=== PATIENT | female | born 1965 | race Caucasian/White ===

== ENCOUNTER 2017-01-10 13:08 | Outpatient (CLI) | payer OTHER | END 2017-01-10 13:24 | LOC: D.MAMMO 13:08 | DX: Z12.31 Encounter for screening mammogram for malignant neoplasm of breast (principal) ==

== ENCOUNTER → 2018-06-07 19:33 | Outpatient (CLI) | payer BC | END | disposition home or self-care (01) | LOC: D.MAMMO 15:45 | DX: Z12.31 Encounter for screening mammogram for malignant neoplasm of breast (principal) ==

== ENCOUNTER 2018-09-15 15:24 | Observation (INO) | payer BC ==
[~2018-09-15] VITALS: Ht 172.7 cm; Wt 0.5 kg
--- NOTE | ~2018-09-15 | DS ---
PATIENT:KARTHIK JC :69 MEDICAL RECORD: [id number] DISCHARGE SUMMARY ADMISSION DATE: 09/15/18 DISCHARGE DATE: 09/16/18 DATE OF DISCHARGE: 09/16/2018 DIAGNOSES: 1. Chest pain. 2. Normal cardiac catheterization. Ms. Jc presents with chest pain; however, cardiac catheterization reveals no significant coronary artery disease, was discharged home with no change in her medical regimen and no cardiac followup. TRANSINT:[id number] Voice Confirmation ID: [id number] DOCUMENT ID: [id number] DILEEP GUTIÉRREZ MD CC: [id number] DICTATION DATE: 09/16/18 1201 WORLD LANGUAGE TEACHER: 09/16/18 2206 DIS IN 09/16/18 [id number] [place] [address]
--- NOTE | ~2018-09-15 | OP ---
PATIENT NAME: KARTHIK JIÉMNEZ MEDICAL RECORD: [id number] :69 LOCATION:D.M2 D.2123 ADMISSION DATE:09/15/18 SURGEON: DILEEP GUTIÉRREZ MD DATE OF OPERATION: 09/16/2018 PROCEDURES: 1. Left heart catheterization. 2. Selective coronary angiography. 3. Left ventriculogram. INDICATION: Chest pain of unknown etiology. PROCEDURE IN DETAIL: After informed consent was obtained with detailed explanation of risks and benefits as well as alternative therapies, the patient elected to proceed with angiogram and heart catheterization. The right radial area was prepped and draped in normal sterile fashion. The right radial artery was cannulated via modified Seldinger technique with placement of 5-Danish sheath. All catheters were exchanged through this sheath. FINDINGS: Left ventriculogram performed in standard 30-degree LAO view reveals good cardiac wall motion throughout all segments. Overall ejection fraction is estimated at 60%. SELECTIVE CORONARY ANGIOGRAPHY: Left main, left anterior descending, left circumflex, and right coronary are all smooth-walled vessels with no angiographic evidence of coronary artery disease. OVERALL IMPRESSION: 1. No angiographic evidence of coronary artery disease. 2. Normal left heart pressures. 3. Normal left ventricular systolic function. TRANSINT:[id number] Voice Confirmation ID: [id number] DOCUMENT ID: [id number] DILEEP GUTIÉRREZ MD CC: [id number] DICTATION DATE: 09/16/18 1203 HYDRAULIC GOVERNOR ASSEMBLER: 09/16/[address] [facility] [address] [id number]
--- NOTE | ~2018-09-15 | HEMODYNAMI ---
PATIENT:KARTHIK JIMÉNEZ MEDICAL RECORD: [id number] : 69 [id number] ADMISSION DATE: 09/15/18 Generatedon:09/16/201812:04 Patient name: KARTHIK JIMÉNEZ Patient #: [id number] SSN: : Date of study: 09/16/2018 Page: Of Hemodynamic Procedure Report Patient Data Patient Demographics Procedure consent was obtained First Name: KARTHIK Gender: Female Last Name: TINO : 1965 Patient #: [id number] Age: 53 year(s) Race: Unknown Additional ID: [id number] Contact details Address: [address] [place] [address] ROAD State: [place] City: [place] Zip code: [address] Past Medical History Allergies: No known allergies Admission Admission Data Admission Date: 09/15/2018 Admission Time: 17:14 Room #: 2123 Lab Results Lab Result Date: 09/16/2018 Lab Result Time: 4:20 Biochemistry Name Units Result Min Max BUN mg/dl 14 --(--*-)-- 7 18 Creatinine mg/dl 0.8 --(-*--)-- 0.6 1.3 CBC Name Units Result Min Max Hematocrit % 39.5 -*(----)-- 42 54 Hemoglobin g/dl 13.8 --(*---)-- 13.5 17.5 Procedure Procedure Types Cath Procedure Diagnostic Procedure C [facility] w/Coronaries Procedure Description Procedure Date Procedure Date: 09/16/2018 Procedure Start Time: 11:52 Procedure End Time: 12:00 Procedure Staff Name Function Zhou Villatoro RT Scrub Chepe Preston RN Nurse Barrera Francis MD Performing Physician Dallas Ye RT Monitor Procedure Data Cath Procedure Fluoroscopy Diagnostic fluoroscopy Total fluoroscopy Time: 1.4 time: 1.4 min min Diagnostic fluoroscopy Total fluoroscopy dose: 252 dose: 252 mGy mGy Contrast Material Contrast Material Type Amount (ml) Isovue 300 44 Entry Location Entry Primary Successful Side Size Upsize Upsize Entry Closure Reinoso ccessful Closure Location (Fr) 1 (Fr) 2 (Fr) Remarks Device Remarks Radial Right 6 Fr Mechanical artery Short Compression Estimated blood loss: 5 ml Diagnostic catheters Device Type Used For End Catheter Placement DIAGNOSTIC [place] 110cm 5 Procedure Fr catheter ([id number]) Procedure Complications No complications Procedure Medications Medication Administration Route Dosage Oxygen etCO2 Nasal cannula 2 l/min Lidocaine 2% added to field 20 Heparin Flush Bag added to field 2 bags (1000units/500ml NS) 0.9% NaCl I.V. 100 ml/hr Radial Cocktail I.A. 1 syringe (Verapomil 2mg/Nitro 400mcg/Heparin 1500units) Versed I.V. 1 mg Fentanyl I.V. 50 mcg Versed I.V. 1 mg Fentanyl I.V. 50 mcg Hemodynamics Rest HGB: 13.8 (g/dl) Heart Rate: 66 (bpm) Pressure Samples Time Site Value (mmHg) Purpose Heart Use Rate(bpm) 11:56 LV 59/8,23 Snapshot 72 11:56 LV 100/14,8 Pullback 74 11:56 AO 105/81(92) Pullback 74 Gradients Valve Time Site 1 Site 2 Mean SEP/DFP Peak To Heart Use (mmHg) (sec/min) Peak Rate (mmHg) (bpm) Aortic 11:56 LV AO 0 74 100/14,8 105/81(92) Calculations Valve P-P Mean Valve Index Valve Source Name Gradient Area Flow (cm2) Aortic 0 0 Snapshots Pre Cath Intra NCS Post Cath Vital Signs Time Heart Resp SPO2 etCO2 NIBP (mmHg) Rhythm Pain Sedation Rate (ipm) (%) (mmHg) Status Level (bpm) 11:33:13 56 16 99 40.9 155/86(129) NSR 0 (11) 10(A) , No pain 11:37:39 63 10 100 35.7 123/49(94) NSR 0 (11) 10(A) , No pain 11:42:34 69 12 100 0 146/92(135) NSR 0 (11) 10(A) , No pain 11:46:54 58 12 99 45.5 124/55(82) NSR 0 (11) 10(A) , No pain 11:52:01 57 11 100 44.7 144/62(133) NSR 0 (11) 10(A) , No pain 11:56:09 73 13 100 46.9 107/75(101) NSR 0 (11) 9(A) , No pain 12:00:11 76 14 99 38 103/87(99) NSR 0 (11) 10(A) , No pain Medications Time Medication Route Dose Verified Delivered Reason Notes Effectiveness by by 11:31:34 Oxygen etCO2 2 l/min Barreracathy Mo used for Nasal Penny Preston RN procedure cannula 11:31:40 Lidocaine 2% added 20ml Barreracathy Rust for local to vial Penyn Francis MD anesthetic field 11:31:46 Heparin Flush added 2 bags Barrera Rust used for Bag to Penny Francis MD procedure (1000units/500ml field NS) 11:31:56 0.9% NaCl I.V. 100 Barreracathy Mo Per ml/hr Penny Preston RN physician 11:52:31 Versed I.V. 1 mg Barrera Mo for sedation Penny Preston RN 11:52:38 Fentanyl I.V. 50 mcg Barrera Mo for sedation Penny Preston RN 11:55:24 Radial Cocktail I.A. 1 Barrera Rust for (Verapomil syringe Penny Francis MD vasodilation 2mg/Nitro 400mcg/Hepari 11:56:18 Versed I.V. 1 mg Barrera Mo for sedation Penny Preston RN 11:56:22 Fentanyl I.V. 50 mcg Barrera Mo for sedation Penny Preston RN Procedure Log Time Note 10:56:35 Zhou Villatoro RT(R) sent for patient. Start room use. 10:56:38 Time tracking: Call back (After hours or weekends) 10:56:43 Plan of Care:Hemodynamics will remain stable., Cardiac rhythm will remain stable., Comfort level will be maintained., Respiratory function will remain adequate., Patient/ family verbilizes understanding of procedure., Procedure tolerated without complication., Recovers from procedure without complications.. 11:19:20 Warm blankets applied, and barbara hugger turned on for patient comfort. 11:19:20 Patient received from Med II to CCL 1 Alert and oriented. Tansferred to table in Supine position. 11:19:21 Correct patient and procedure confirmed by team. 11:19:22 Signed procedure consent form obtained from patient. 11:19:23 ECG and BP/O2 sat monitors applied to patient. 11:19:24 Pre-op teaching completed and patient verbalized understanding. 11:19:24 Pre-procedure instructions explained to patient. 11:19:25 Family in waiting room. 11:19:26 Patient NPO since Midnight. 11:31:34 Oxygen 2 l/min etCO2 Nasal cannula was administered by Chepe Preston RN; used for procedure; 11:31:40 Lidocaine 2% 20ml vial added to field was administered by Barrera Francis MD; for local anesthetic; 11:31:46 Heparin Flush Bag (1000units/500ml NS) 2 bags added to field was administered by Barrera Francis MD; used for procedure; 11:31:56 0.9% NaCl 100 ml/hr I.V. was administered by Chepe Preston RN; Per physician; 11:31:59 Vital chart was started 11:37:06 If diabetic: On Metformin? No 11:37:15 Baseline sample Acquired. 11:37:18 Rhythm: sinus rhythm 11:37:20 Full Disclosure recording started 11:37:36 H&P Date Dictated: 09/15/2018 Within 30 days and on chart.. 11:37:44 Patient allergic to No known allergies 11:37:45 Is the patient allergic to Iodine/contrast media? No. 11:37:46 Is patient on blood thinner?Yes 11:37:48 ACC The patient was administered the following blood thiners within the last 24 hours: ACCPlavix 11:37:49 Patient diabetic? Yes. 11:37:52 Previous problem with sedation/anesthesia? No ? 11:37:54 Snore? Yes 11:37:55 Sleep apnea? No 11:37:56 Opens mouth fully? Yes 11:37:56 Deviated septum? No 11:38:01 Sticks out tongue? Yes 11:38:03 Airway obstruction? No ? 11:38:06 Dentures? No ? 11:38:10 Pre procedure: right dorsailis pedis pulse 2+ Normal; easily identifiable; not easily obliterated 11:38:12 Patient pain scale 0/10 ?. 11:38:15 Modified Zhou's test Ulnar < 7 seconds 11:38:19 IV patent on arrival in left hand with 0.9% NaCl at KVO. 11:39:13 Lab Result : Hemoglobin 13.8 g/dl 11:39:13 Lab Result : Hematocrit 39.5 % 11:39:13 Lab Result : BUN 14 mg/dl 11:39:13 Lab Result : Creatinine 0.8 mg/dl 11:39:16 Lab results completed and on chart. 11:39:18 Right Radial & Right Groin area was prepped with chlora-prep and draped in sterile fashion 11:39:19 Sharps counted by scrub and verified by R.N. 11:39:19 Alarms reviewed by R. N. 11:39:22 ACIST Syringe (51552) opened to sterile field. 11:39:22 Use device set Radial Dx or PCI 11:39:23 Bag Decanter (2002S) opened to sterile field. 11:39:23 Medline Cath Pack ([id number]) opened to sterile field. 11:39:24 ACIST Manifold (96792) opened to sterile field. 11:39:24 ACIST Hand Control (69883) opened to sterile field. 11:39:25 MBrace Wrist Support ([id number]) opened to sterile field. 11:39:25 Tegaderm 4 x 4 (1626W) opened to sterile field. 11:39:26 SHEATH 6FR Slender (58-1060) opened to sterile field. 11:39:27 DIAGNOSTIC WIRE .035 260cm J wire (014599) opened to sterile field. 11:51:51 --------ALL STOP TIME OUT------ 11:51:51 Physician arrived 11:51:52 Final Timeout: patient, procedure, and site verified with staff and physician. All members of the team are in agreement. 11:51:53 Right Radial & Right Groin site verified by team. 11:51:56 Maximum allowable Isovue 300 dose 300ml. Physician notified. (300ml for normal creatinines. For patients with creatinine of 1.7 or higher multiply weight(kg) x 5 divided by creatinine.) 11:51:59 Fire Safety Assessment: A--An alcohol-based skin anteseptic being used preoperatively., C--Open oxygen or nitrous oxide is being used., D--An ESU, laser, or fiber-optic light is being used. 11:52:02 Physical assessment completed. ASA score P 2 - A patient with mild systemic disease as per Barrera Francis MD. 11:52:05 Sedation plan: IV Moderate Sedation Medication:Versed, Fentanyl 11:52:31 Versed 1 mg I.V. was administered by Chepe Preston RN; for sedation; 11:52:32 Procedure started. 11:52:38 Fentanyl 50 mcg I.V. was administered by Chepe Preston RN; for sedation; 11::49 Local anesthetic to right radial artery with Lidocaine 2% by Barrera Francis MD.INITIAL ACCESS ONLY 11:52:56 A 6 Fr Short sheath was inserted into the Right Radial artery 11:54:34 Zero performed for pressure channel P1 11:55:24 Radial Cocktail (Verapomil 2mg/Nitro 400mcg/Heparin 1500units) 1 syringe I.A. was administered by Barrera Francis MD; for vasodilation; 11:55:40 A DIAGNOSTIC [place] 110cm 5 Fr catheter ([id number]) was advanced over the wire and used for Procedure. 11:56:12 LV gram done using LAO 11:56:15 Injector settings: Ml/sec: 5, Volume: 15, 11:56:16 LV hemodynamics recorded. 11:56:18 Versed 1 mg I.V. was administered by Chepe Preston RN; for sedation; 11:56:22 Fentanyl 50 mcg I.V. was administered by Chepe Preston RN; for sedation; 11:56:37 EF : 60 % 11:56:59 RCA angiography performed. 11:57:09 Catheter exchanged over wire. 11:57:48 GUIDE 6FR XBC 3 ([id number]) opened to sterile field. 11:57:54 Catheter exchanged over wire. 11:57:59 6 Fr XBC 3 guide catheter was inserted over the wire 11:58:05 LCA angiography performed. 11:59:43 Catheter removed. 11:59:45 TR BAND Standard ([id number]) opened to sterile field. 11:59:52 Sheath removed intact; hemostasis achieved with Mechanical Compression to the Right Radial artery. 11:59:56 Procedure ended.(Physican Out) 12:00:07 Fluoroscopy time 01.40 minutes. 12:00:11 Fluoroscopy dose: 252 mGy 12:00:11 Flurop Dose total: 252 12:00:14 Contrast amount:Isovue 300 44ml. 12:00:15 Sharps counted by scrub and verified by R.N. 12:00:17 TR band inflated with 12cc of air. 12:00:19 Insertion/operative site no bleeding no hematoma. 12:00:24 Post right radial artery:stable, soft, clean and dry 12:00:26 Post Procedure Pulses reassessed and unchanged 12:00:31 Post-procedure physical assessment completed. ASA score P 2 - A patient with mild systemic disease as per Barrera Francis MD. 12:00:33 Post procedure rhythm: unchanged. 12:00:35 Estimated blood loss: 5 ml 12:00:36 Patient needs reinforcement of post procedure teaching. 12:00:36 Post procedure instruction explained to patient.Patient verbalizes understanding. 12:00:42 Procedure and supply charges have been captured, reviewed, submitted and are correct. 12:00:45 Procedure Complication : No complications 12:00:46 Vital chart was stopped 12:00:47 See physician's report for complete and final results. 12:00:49 Report given to PCU. 12:00:51 Patient transfered to PCU with Stretcher. 12:00:53 Full Disclosure recording stopped 12:00:53 Procedure ended. 12:00:56 End room use (Document Last) Device Usage Item Name Manufacture Quantity Catalog Hospital Part Current Minimal Lot# / Number Charge Number Stock Stock Serial# Code ACIST Acist 1 52448 [id number] 467988 125417 20 Syringe Medical (39541) Systems Inc Medline Medline 1 [id number] 211103 07853 876058 5 Cath Pack ([id number]) Bag Microtek 1 308895 08708 892437 5 Decanter Medical Inc. () ACIST Hand Acist 1 88086 759737 432936 836652 5 Control Medical (98770) Systems Inc ACIST Acist 1 36064 754306 942494 692063 5 Manifold Medical (98993) Systems Inc Tegaderm 4 3M 1 1626W 010793 970048 133004 5 x 4 (1626W) MBrace Advanced 1 140-0250-00 678072 11437 605006 5 Wrist Vascular Support Dynamics ([id number]) SHEATH 6FR Terumo 1 [id number] 647682 575240 468289 5 Slender (80-1060) DIAGNOSTIC [facility] [place] 1 986163 550805 286910 672966 30 WIRE .035 260cm J wire (244377) DIAGNOSTIC Terumo 1 40-7492 757141 794315 865010 5 [place] 110cm 5 Fr catheter (196809) GUIDE 6FR Cardinal 1 [id number] 693956 17850 265490 5 XBC 3 [facility] ([id number]) TR BAND Terumo 1 [id number] 621286 887825 454995 40 Standard ([id number]) Signature Audit Leon Stage Time Signature Unsigned Intra-Procedure 09/16/2018 Dallas Ye RT(R) 12:01:24 PM RT(R) 09/16/2018 12:04:20 PM Intra-Procedure 09/16/2018 Dallas Ye 12:04:51 PM RT(R) Signatures Monitor : Dallas Ye RT Signature : Date : Time : [facility] [address] [place] [address]
[2018-09-15] MEDS ORDERED: LIPITOR40 MG PO (15:32)
[2018-09-15] MEDS ORDERED: SYNTHROID50 MCG PO (15:32)
[2018-09-15] MEDS ORDERED: BUPROPION HCL150 M1 PO (15:32)
[2018-09-15 16:30] LABS: EOSINOPHILS 8.2 % (0-7); HEMATOCRIT 39.5 % (36.0-48.0); HEMOGLOBIN 13.8 g/dL (12-16); IMMATURE GRANULOCYTES 0.1 % (0-5); LYMPHOCYTES 45.3 % (15-50); MCH 31.4 pg (26.0-34.0); MCHC 34.9 g/dL (31.0-37.0); MEAN PLATELET VOLUME 10.3 fL (7.4-10.4); MONOCYTES 12.8 % (2-11); NEUTROPHILS 32.6 % (40-80); PLATELET COUNT 231 10x3/uL (130-400); RBC 4.39 10x6/uL (4.00-5.40); RDW 12.5 % (11.5-14.5)
[2018-09-15 16:39] LABS: APTT 25.2 SECONDS (22.8-39.4); INR 0.99 (0.85-1.17); PROTIME 12.6 SECONDS (11.6-15.0)
[2018-09-15 16:47] LABS: ALBUMIN 3.6 g/dL (3.4-5.0); ALKALINE PHOSPHATASE 87 U/L (46-116); ALT (SGPT) 36 U/L (10-68); BILIRUBIN - TOTAL 0.32 mg/dL (0.2-1.3); CALC OSMOLALITY 280 mosm/kg (275-300); CARBON DIOXIDE 27.8 mmol/L (21.0-32.0); CHLORIDE - SERUM 104 mmol/L (98-107); CREATININE - SERUM 0.8 mg/dL (0.6-1.3); GLUCOSE 120 mg/dL (74-106); POTASSIUM - SERUM 3.7 mmol/L (3.5-5.1); PROTEIN - SERUM 8.4 g/dL (6.4-8.2); SODIUM 140 mmol/L (136-145); UREA NITROGEN 14 mg/dL (7-18); eGFR NON AFRICAN AMERICAN 80 mL/min (90-120)
[2018-09-15 16:56] VITALS: BP 142/69
[2018-09-15 16:58] LABS: CKMB 0.8 U/L (0.0-3.6); CREATINE KINASE 117 UL (21-215); MAGNESIUM - SERUM 2.1 mg/dL (1.8-2.4); TROPONIN-I 0.022 ng/mL (0.000-0.060)
--- NOTE | 2018-09-15 20:05 | NUR ---
REPORT RECIEVED AND INITIAL ROUNDS COMPLETED. PT RESTING IN BED. ARRIVED FROM ER AT 1835. HAS BEEN GIVEN IV MORPHINE FOR CHEST PAIN 02/12. INSTRUCTED ON NPO AFTER MIDNIGHT UNTIL SEEN BY [employer] IN AM.
[2018-09-15 20:28] VITALS: BP 118/70
[2018-09-15 21:29] LABS: CKMB 0.7 U/L (0.0-3.6); CREATINE KINASE 93 UL (21-215); TROPONIN-I < 0.017 ng/mL (0.000-0.060)
[2018-09-15 23:07] VITALS: BP 118/70; Ht 172.7 cm; Wt 0.5 kg
[2018-09-16 00:27] VITALS: BP 98/57
--- NOTE | 2018-09-16 02:10 | NUR ---
PT RESTING IN BED WITH NO DISTRESS. MONITOR AND CPOC.
[2018-09-16 03:53] VITALS: BP 97/54
[2018-09-16 05:33] LABS: CKMB 0.7 U/L (0.0-3.6); CREATINE KINASE 79 UL (21-215)
[2018-09-16 05:34] LABS: TROPONIN-I < 0.017 ng/mL (0.000-0.060)
--- NOTE | 2018-09-16 07:01 | NUR ---
PT ASLEEP, FAMILY AT BEDSIDE ALSO ASLEEP, DID NOT WAKE I KNOCKED AND ENTERED BUT LATER TOLD THE TECH SHE HAD A HEADACHE, WILL RESOLVE WITH MORNING MEDS SOON. CL IN REACH, SRX2.
[2018-09-16 07:41] VITALS: BP 118/63
[2018-09-16 11:05] VITALS: BP 135/51
--- NOTE | 2018-09-16 12:00 | HP ---
PATIENT: KARTHIK JC MEDICAL RECORD: [id number] ACCOUNT: [id number] LOCATION:[address] : 69 ADMISSION DATE: 09/15/18 PCP: ELLIOTT CABRERA MD HISTORY AND PHYSICAL EXAMINATION DIAGNOSES: 1. Chest pain, compatible with angina. 2. Hyperlipidemia. 3. Family history of coronary artery disease. HISTORY: Mrs. Jc presents with multiple hours of chest discomfort. It is in the center of her chest, radiating to her back, some radiation down the left arm. There is a pressure-like sensation. It was quite severe, got more severe over the 3 hours prior to the Emergency Room. She did get some leg relief with morphine and nitro. She has had recurrences of the pain, requiring more and recurrent nitro since. PHYSICAL EXAMINATION: GENERAL APPEARANCE: Well-nourished, well-developed, appears stated age. Level of distress, comfortable. PSYCHIATRIC: Mental status, alert, normal affect. Orientation, oriented to time, place and person. EYES: Lids and conjunctiva, noninjected. No discharge, no pallor. ENT: Lips, teeth, gums, normal dentition. Oropharynx, no cyanosis, no pallor. NECK: Carotid arteries, bilateral normal upstroke, no bruits, no thrills. JUGULAR VEINS: No jugular venous pressure or distention. CERVICAL LYMPH NODES: Nontender, nonenlarged. THYROID: Not enlarged. Nontender. No nodules. LUNGS: Respiratory effort, unlabored. CHEST: Normal curvature. No thoracic deformity. No chest wall tenderness. Percussion, resonant. Auscultation, clear. No wheezes, no rales, no rhonchi. CARDIOVASCULAR: Precordial exam, nondisplaced. No heaves or pericardial thrills. Rate and rhythm, regular. Heart sounds, normal S1, normal S2. No S3, no gallop, no rub. Systolic murmur, not heard. Diastolic murmur, not heard. EXTREMITIES: No cyanosis, no edema. Peripheral pulses, full and equal in all extremities, except as noted. No bruits appreciated. ABDOMEN: Soft, nondistended. Normal aorta. No bruit. Nontender. No masses. Liver, nontender, no hepatomegaly. Spleen, nontender, no splenomegaly. MUSCULOSKELETAL: No joint tenderness. No joint swelling. No erythema. NEUROLOGICAL: Normal gait, normal strength, normal tone. SKIN: Warm and dry. OVERALL IMPRESSION: Chest pain with recurrent chest pain. We will proceed with coronary angiography. Further care depends upon findings of the angiography. TRANSINT:[id number] Voice Confirmation ID: [id number] DOCUMENT ID: [id number] HISTORY AND PHYSICAL [id number] KARTHIK JC [place] MD at 1200 CC: [id number] DICTATION DATE: 09/16/18835 PLUG MACHINE OPERATOR: 09/16/18 1122 ADM IN [facility] [address] [place] [address]
--- NOTE | 2018-09-16 12:30 | NUR ---
PT BACK FROM HISTORICAL GUIDE, CLEAN CATH. PULSE PRESENT RIGHT RADIAL. NO COMPLAINTS, SLEEPING HARD. WILL BE ALOUD TO LEAVE AT 1430.
--- NOTE | 2018-09-16 13:23 | NUR ---
PT LYING IN BED, AWAKE AT TIMES, SLEEPING HEAVILY INTERMITENTLY. FAMILY AT BEDSIDE. PULSE PRESENT. CL IN REACH. SRX2.
--- NOTE | 2018-09-16 14:00 | NUR ---
RN NOTE-SITTING UP IN BED EATING LUNCH WITH LEFT HAND. FAMILY AT BEDSIDE. 3 CC OR AIR REMOVED FROM RIGHT TR BAND. NO BLEEDING SEEN. WILL MONITOR FOR POST OP BLEEDING. DENIES ANY CHEST PAIN OR DISCOMFORT.
[2018-09-16 15:31] VITALS: BP 118/55
--- NOTE | 2018-09-16 15:55 | NUR ---
PT ESCORTED OUT VIA WHEELCHAIR TO POV, DRIVING.
--- NOTE | 2018-09-17 08:15 | MORECARE ---
CASE MANAGEMENT DISCHARGE SUMMARY PATIENT: KARTHIK JIMÉNEZ UNIT: [id number] ADM DATE: 09/15/18 AGE: 53 : 69 SEX: F ROOM/BED: D.2123 AUTHOR: FILI HORTON PHYSICIAN: REFERRING PHYSICIAN: DILEEP GUTIÉRREZ MD DATE OF SERVICE: 09/17/18 Discharge Plan Patient Name: KARTHIK JIMÉNEZ Facility: [facility]:[place] : 1965 Planned Disposition: Home Anticipated Discharge Date: 09/16/18 Discharge Date: 09/16/2018 Expected LOS: 1 Initial Reviewer: [email or web address] Initial Review Date: 09/17/2018 Generated: 09/17/18 9:15 am Comments DCP- Discharge Planning Updated by [email or web address]: Laurel Harry on 09/16/18 3:[address] Patient Name: KARTHIK JIMÉNEZ Encounter No: [id number] : 1965 Primary Insurance: [employer] TRUE BLUE PPO Medication Coordinator: :Laurel Harry UR Note: discharged 09/16/18 Laurel Harry Patient Name: KARTHIK JIMÉNEZ Page [phone] at 0815 All edits/amendments must be made on the electronic document DICTATION DATE: 09/17/18814 DIGITAL ASSISTANT: MORGAN 09/17/18814 RPT#: [id number] DC DATE:09/16/18 STATUS: DIS IN [facility] [address] [place] [address] END OF REPORT
== END 2018-09-16 15:56 | disposition home or self-care (01) ==
LOC: D.ER 15:24 → D.EDHOLD 17:14 → OBSVTIME 17:14 → D.M2 17:37
PROVIDERS: Emergency Medicine; ADMIT Internal Medicine Interventional Cardiology; ATTEND Internal Medicine Interventional Cardiology
DX: R07.9 Chest pain, unspecified (principal); E78.5 Hyperlipidemia, unspecified; Z82.49 Family history of ischemic heart disease and other diseases of the circulatory system